=== PATIENT | male | born 1970 | race Caucasian/White ===

== ENCOUNTER 2017-10-31 17:17 | Observation (INO) ==
[2017-10-31 19:19] VITALS: RESP 20; TEMP 98.9; O2SAT 99
[2017-10-31 19:22] VITALS: PULSE 86
--- NOTE | 2017-10-31 19:36 | ED ---
HPI General Chief complaint: Nausea/Vomiting/Diarrhea Stated complaint: Weakness Time Seen by Provider: 10/31/17 19:22 Source: patient Mode of arrival: ambulatory Limitations: no limitations History of Present Illness HPI Narrative: Patient is a 47-year-old male who was here 3 days ago seen by eye doctor and treated for allergic reaction hands were swelling at that time and red also had some redness at the lower part of his back he did not fill the steroid Medrol Ezra and he did not feel the hydrochlorothiazide prescription that she gave him for the hypertension that he has and had on that day as well. His complaint now is that progression of his hand bilateral wrist swelling tenderness in all his joints his neck aches he has a sore throat. He has body aches he does have a history of gout he feels like it is a very bad gout attack but there is no obvious swelling of the joints at this time he is a history of hypertension he has been noncompliant with his meds it is been progressively getting worse over 3 days did not take the meds that he was prescribed the only med he is taking his NyQuil because it does feel like generalized body aches with a sore throat denies cough, diffuse MD complaint: nausea and vomiting Onset (ago): day(s) Associated Abdominal Pain: No Quality: aching Related Data Home Medications Medication Instructions Recorded Confirmed No Known Home Medications 10/31/17 10/31/17 Allergies Allergy/AdvReac Type Severity Reaction Status Date / Time penicillin V Allergy Severe UPSET Verified 10/27/17 04:28 STOMACH Review of Systems Except as stated in HPI: all other systems reviewed are negative [facility] Social History Social History Substance History: No History of Abuse Second Hand Smoke Exposure: Yes Smoking Status: Former smoker How Often Do You Have a Drink Containing Alcohol: Monthly or less Recent Travel in [facility] within the Last 8 Weeks: No Recent Out of Country Travel within the Last 8 Weeks: No Immunization History Tetanus Immunization: >5 Years Hx Influenza Vaccine This Season: No Exam Narrative Exam Narrative: GENERAL: Patient has redness to his skin looks like a sunburn that blanches on his back mostly SKIN: Warm and dry. Mild redness to his back HEAD: Atraumatic. Normocephalic. EYES: Pupils equal and round. No scleral icterus. No injection or drainage. ENT: No nasal bleeding or discharge. Mucous membranes pink and moist. NECK: Trachea midline. No JVD. CARDIOVASCULAR: Regular rate and rhythm. RESPIRATORY: No accessory muscle use. Clear to auscultation. Breath sounds equal bilaterally. GASTROINTESTINAL: Abdomen soft, non-tender, nondistended. Hepatic and splenic margins not palpable. MUSCULOSKELETAL: Extremities extreme tenderness to his bilateral wrists minimal swelling patient sits up very slowly because of his wrist hurting him so much..when I say his wrist ache , he says "no they do not ache they are is severely painful" NEUROLOGICAL: Awake and alert. No obvious cranial nerve deficits. Motor grossly within normal limits. Five out of 5 muscle strength in the arms and legs. Normal speech. PSYCHIATRIC: Appropriate mood and affect; insight and judgment normal. Course Initial Documented Vital Signs Temperature 98.8 F 10/31/17 17:30 Pulse Rate 84 10/31/17 17:30 Respiratory Rate 18 10/31/17 17:30 Blood Pressure 193/91 H 10/31/17 17:30 Pulse Oximetry 100 10/31/17 17:30 Last Documented Vital Signs Temperature 98.9 F 10/31/17 19:15 Pulse Rate 86 10/31/17 23:19 Respiratory Rate 20 10/31/17 23:19 Blood Pressure 146/72 H 10/31/17 23:19 Pulse Oximetry 99 10/31/17 19:19 Medical Decision Making [facility] Narrative Medical decision making narrative: ESR and sed rate elevated , solumedrol and toradol given but pt refused admission . I had given report to Dr jaimes then pt wanted to leave, [facility] info given and Prednisone 50 mg PO RX for 5 days Differential Diagnosis Differential Diagnosis: gout vs rheumatologic autoimmune joint swelling and pain, vs lyme disease vs migratory athritis of gout or gonorrhea other Lab Data Result diagrams: 10/31/17 20:24 10/31/17 20:24 Lab Results 10/31/17 10/31/17 10/31/17 Range/Units 20:24 20:24 20:24 WBC 12.4 H (4.0-11.0) th/mm3 RBC 4.50 (4.50-5.90) mil/mm3 Hgb 13.5 (13.0-17.0) gm/dL Hct 38.7 L (39.0-51.0) % MCV 86.0 (80.0-100.0) fL MCH 29.9 (27.0-34.0) pg MCHC 34.8 (32.0-36.0) % RDW 14.0 (11.6-17.2) % Plt Count 194 (150-450) th/mm3 MPV 8.3 (7.0-11.0) fL Neut % (Auto) 78.5 H (16.0-70.0) % Lymph % (Auto) 12.2 (9.0-44.0) % Mcdowell % (Auto) 7.6 (0.0-8.0) % Eos % (Auto) 1.3 (0.0-4.0) % Baso % (Auto) 0.4 (0.0-2.0) % Neut # (Auto) 9.7 H (1.8-7.7) th/mm3 Lymph # (Auto) 1.5 (1.0-4.8) th/mm3 Mcdowell # (Auto) 0.9 (0.0-0.9) th/mm3 Eos # (Auto) 0.2 (0.0-0.4) th/mm3 Baso # (Auto) 0.1 (0.0-0.2) th/mm3 WBC Differential . Differential Comment Auto diff final ESR 84 H (0-15) mm/hr Sodium 139 (136-145) meq/L Potassium 3.2 L (3.5-5.1) meq/L Chloride 105 (98-107) meq/L Carbon Dioxide 24.3 (21.0-32.0) meq/L Anion Gap 10 (5-15) meq/L BUN 14 (7-18) mg/dL Creatinine 0.64 (0.60-1.30) mg/dL Estimated GFR Greater than 89 (>89) mL/min Random Glucose 92 (74-106) mg/dL Uric Acid (2.6-7.2) mg/dl Calcium 8.4 L (8.5-10.1) mg/dL Total Bilirubin 1.5 H (0.2-1.0) mg/dL AST 24 (15-37) U/L ALT 41 (12-78) U/L Alkaline Phosphatase 49 (45-117) U/L Total Creatine Kinase 26 L (39-308) U/L C-Reactive Protein (0.00-0.30) mg/dL Total Protein 7.2 (6.4-8.2) g/dL Albumin 2.8 L (3.4-5.0) g/dL Lyme Disease DNA (PCR) 10/31/17 11/01/17 Range/Units 20:24 00:05 WBC (4.0-11.0) th/mm3 RBC (4.50-5.90) mil/mm3 Hgb (13.0-17.0) gm/dL Hct (39.0-51.0) % MCV (80.0-100.0) fL MCH (27.0-34.0) pg MCHC (32.0-36.0) % RDW (11.6-17.2) % Plt Count (150-450) th/mm3 MPV (7.0-11.0) fL Neut % (Auto) (16.0-70.0) % Lymph % (Auto) (9.0-44.0) % Mcdowell % (Auto) (0.0-8.0) % Eos % (Auto) (0.0-4.0) % Baso % (Auto) (0.0-2.0) % Neut # (Auto) (1.8-7.7) th/mm3 Lymph # (Auto) (1.0-4.8) th/mm3 Mcdowell # (Auto) (0.0-0.9) th/mm3 Eos # (Auto) (0.0-0.4) th/mm3 Baso # (Auto) (0.0-0.2) th/mm3 WBC Differential Differential Comment ESR (0-15) mm/hr Sodium (136-145) meq/L Potassium (3.5-5.1) meq/L Chloride (98-107) meq/L Carbon Dioxide (21.0-32.0) meq/L Anion Gap (5-15) meq/L BUN (7-18) mg/dL Creatinine (0.60-1.30) mg/dL Estimated GFR (>89) mL/min Random Glucose (74-106) mg/dL Uric Acid 5.5 (2.6-7.2) mg/dl Calcium (8.5-10.1) mg/dL Total Bilirubin (0.2-1.0) mg/dL AST (15-37) U/L ALT (12-78) U/L Alkaline Phosphatase (45-117) U/L Total Creatine Kinase (39-308) U/L C-Reactive Protein 18.00 H (0.00-0.30) mg/dL Total Protein (6.4-8.2) g/dL Albumin (3.4-5.0) g/dL Lyme Disease DNA (PCR) Not detected Imaging Data Radiologist's impression: Wrist X-Ray 10/31/17 20:34 CONCLUSION: Negative examination Wrist X-Ray 10/31/17 20:34 CONCLUSION: Negative examination Discharge Plan Discharge Disposition Patient Disposition: 01 Discharge Home Discharge Condition Condition: Stable Discharge Order Discharge Orders: Discharge Order (Routine); Ordered 10/31/17 Ordered By: Mulugeta Joyner Discharge Details Anticipated Discharge Date: 10/31/17 Discharge Comment: pt refused admission and 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
[2017-10-31] MEDS ORDERED: Ketorolac Inj 30 MG/ML (IVP) Vial IV.PUSH ONE (19:39)
[2017-10-31] MEDS ORDERED: guaiFENesin/Codeine Syrup 200 MG/20 MG 10 ML UDC PO ONE (19:47)
[2017-10-31 20:45] LABS: Baso # (Auto) 0.1 th/mm3 (0.0-0.2); Baso % (Auto) 0.4 % (0.0-2.0); Eos # (Auto) 0.2 th/mm3 (0.0-0.4); Eos % (Auto) 1.3 % (0.0-4.0); Hematocrit 38.7 % (39.0-51.0); Hemoglobin 13.5 gm/dL (13.0-17.0); Lymph # (Auto) 1.5 th/mm3 (1.0-4.8); Lymph % (Auto) 12.2 % (9.0-44.0); Mean Corpuscular HGB Conc 34.8 % (32.0-36.0); Mean Corpuscular Hemoglobin 29.9 pg (27.0-34.0); Mean Platelet Volume 8.3 fL (7.0-11.0); Mono # (Auto) 0.9 th/mm3 (0.0-0.9); Mono % (Auto) 7.6 % (0.0-8.0); Neut # (Auto) 9.7 th/mm3 (1.8-7.7); Neut % (Auto) 78.5 % (16.0-70.0); Platelet Count 194 th/mm3 (150-450); White Blood Count 12.4 th/mm3 (4.0-11.0)
[2017-10-31 20:58] LABS: Albumin 2.8 g/dL (3.4-5.0); Anion Gap 10 meq/L (5-15); Aspartate Aminotransferase 24 U/L (15-37); Blood Urea Nitrogen 14 mg/dL (7-18); Calcium 8.4 mg/dL (8.5-10.1); Carbon Dioxide 24.3 meq/L (21.0-32.0); Chloride 105 meq/L (98-107); Glomerular Filtration Rate Greater Than 89 mL/min (>89); Glucose,Random 92 mg/dL (74-106); Potassium 3.2 meq/L (3.5-5.1); Sodium 139 meq/L (136-145); Uric Acid 5.5 mg/dl (2.6-7.2)
[2017-10-31 20:59] LABS: Alanine Aminotransferase 41 U/L (12-78)
[2017-10-31 21:01] LABS: Alkaline Phosphatase 49 U/L (45-117); Total Protein 7.2 g/dL (6.4-8.2)
[2017-10-31 21:10] LABS: Creatine Kinase 26 U/L (39-308)
--- NOTE | 2017-10-31 21:13 | XR ---
EXAM DATE: 10/31/2017 8:57 PM EDT AGE/SEX: 47 years / Male INDICATIONS: Pain without trauma. CLINICAL DATA: This is the patient's initial encounter. Patient reports that signs and symptoms have been present for 4 - 6 days and indicates a pain score of 5/10. MEDICAL/SURGICAL HISTORY: None. None. COMPARISON: No prior exams available for comparison. FINDINGS: Bony structures are intact and in normal alignment. Joints are intact without dislocation or signifi cant arthropathy. Osseous density is normal. Soft tissues are unremarkable. No radiopaque foreign bodies seen. CONCLUSION: Negative examination Electronically signed by: Sheng Moe MD 10/31/2017 9:11 PM EDT
--- NOTE | 2017-10-31 21:13 | XR ---
EXAM DATE: 10/31/2017 8:58 PM EDT AGE/SEX: 47 years / Male INDICATIONS: Pain without trauma. CLINICAL DATA: This is the patient's initial encounter. Patient reports that signs and symptoms have been present for 4 - 6 days and indicates a pain score of 5/10. MEDICAL/SURGICAL HISTORY: None. None. COMPARISON: No prior exams available for comparison. FINDINGS: Bony structures are intact and in normal alignment. Joints are intact without dislocation or signifi cant arthropathy. Osseous density is normal. Soft tissues are unremarkable. No radiopaque foreign bodies seen. CONCLUSION: Negative examination Electronically signed by: Sheng Moe MD 10/31/2017 9:12 PM EDT
[2017-10-31] MEDS ORDERED: MethylPREDNISolone Sod Succinate Inj 125 MG/2 ML Vial IV.PUSH ONE (21:38)
[2017-10-31] MEDS ORDERED: Morphine Inj 4 MG/ML Vial IV.PUSH ONE (21:38)
[2017-10-31 23:28] VITALS: BP 146/72
== END 2017-11-01 00:30 | disposition home or self-care (01) ==
LOC: NEPC 17:17 → NEDA 17:17
PROVIDERS: ADMIT Family Medicine; ATTEND Family Medicine